=== PATIENT | female | born 1990 | race Caucasian/White ===

== ENCOUNTER 2017-02-16 16:58 | Emergency (ER) | payer OTHER ==
[~2017-02-16 16:58] MED LIST: Iopamidol 370 76% 100 ML VIAL ONE
[2017-02-16] MEDS ORDERED: Ketorolac Tromethamine 30 MG/ML VIAL ONE (17:29)
[2017-02-16 18:09] LABS: PTT 29.7 SEC (22.9-36.1); Prothrombin Time 14.5 SEC (12.0-14.7)
[2017-02-16 18:11] LABS: #Eosinphils 0.2 thou/uL (0.0-0.7); #Lymphocytes 2.6 thou/uL (1.20-3.40); #Monocytes 0.5 thou/uL (0.11-0.59); %Basophils 0.6 % (0.0-1.0); %Eosinophils 2.8 % (0.0-10.0); %Lymphocytes 35.1 % (21.0-51.0); %Monocytes 6.2 % (0.0-10.0); Red Blood Cell (RBC) Count 4.12 mill/uL (4.20-5.40); White Blood Cell (WBC) Count 7.3 thou/uL (4.8-10.8)
[2017-02-16 18:16] LABS: ALT (SGPT) 17 U/L (8-55); AST (SGOT) 14 U/L (5-34); Alkaline Phosphatase 129 U/L (40-150); Anion Gap 15 mmol/L (10-20); BUN (Urea Nitrogen) 9 mg/dL (7.0-18.7); Bilirubin, Total 0.3 mg/dL (0.2-1.2); Calc. Creatinine Clearance 0 mL/min (70-130); Calcium 9.2 mg/dL (7.8-10.44); Carbon Dioxide 24 mmol/L (22-29); Chloride 106 mmol/L (98-107); Estimated GFR-MDRD 83; Globulin 3.1 g/dL (2.4-3.5); Protein, Total 6.9 g/dL (6.0-8.3)
--- NOTE | 2017-02-16 18:54 | CT ---
EXAM: ABDOMEN CT WITH CONTRAST PELVIC CT WITH CONTRAST 02/16/17 HISTORY: three weeks ago. Patient fell two days ago and has abdominal and low back pain. Right lowe r quadrant pain. COMPARISON: None. TECHNIQUE: An abdomen and pelvic CT are performed with IV contrast. Enteric contrast was not administered. Mckinley nal reformatted images are submitted for interpretation. FINDINGS: ABDOMEN CT: Lung bases are clear. Heart size is within normal limits. No significant pericardial fluid. The visu alized aorta has a normal caliber. Symmetric attenuation of the psoas muscles. Intra and extrahepatic portal vein is patent. Contour of the gallbladder likely due to nonfasting state. Liver, spleen, pancreas, and adrenal glands have appropriate enhancement. No gastrohepatic, retrocrural or periportal lymphadenopathy. No mesenteric mass, lymphadenopathy, free air, or free fluid. Limited evaluation of the alimentary canal due to lack of oral contrast administration. Normal calib er small bowel loops. Ileocecal junction is normal. Normal caliber appendix emanates from the cecal apex. Fecal material in a nondistended, nondilated colon. Minimal diverticulosis, without evidence o f diverticulitis. Symmetric enhancement of the kidneys. Bilaterally, no obstructive uropathy. Stranding of the ventral subcutaneous fat compatible with recent surgery. There is no evidence of an abscess. Appropriate attenuation of the anterior abdominal rectus muscles. PELVIC CT: The uterus and adnexa are unremarkable. Mild uterine prominence due to state. Urinary fabiano dder is unremarkable. Trace amount of free fluid in the pelvis. No mass, lymphadenopathy or free air . There are no lytic or blastic lesions in the visualized osseous structures. No evidence of a lumbar spine fracture. IMPRESSION: No acute abnormality in the abdomen or pelvis. POS: [facility]
[2017-02-16 18:55] LABS: Bilirubin Negative (Negative); Blood, Urine Small (Negative); Glucose, Urine (Dipstick) Negative (Negative); Ketone, Urine Negative (Negative); Nitrite Negative (Negative); Protein, Urine (Dipstick) Negative (Neg-Trace); Urobilinogen 0.2 mg/dL (0.2-1.0)
[2017-02-16 18:59] LABS: Bacteria/HPF 1+ HPF (None Seen); Oval Fat Bodies/HPF Rare HPF (None Seen); Renal Epithelial 0-3 HPF (0-3)
[2017-02-16] MEDS ORDERED: HYDROcodone/Acetaminophen 5/325 mg Tablet ONE (19:18)
== END 2017-02-16 19:27 | disposition home or self-care (01) ==
LOC: SCSER 16:58
DX: R10.31 Right lower quadrant pain (principal); R10.11 Right upper quadrant pain
CPT/HCPCS: 36415; 74177; 80053; 81003; 81015; 84703; 85025; 85610; 85730; 96374; J1885